=== PATIENT | male | born 1950 | race Caucasian/White ===

== ENCOUNTER 2019-04-21 11:01 | Emergency (ER) | payer MEDICARE, OTHER ==
[2019-04-21] MEDS ORDERED: Silver Sulfadiazine 1% Crm 50 GM Tube TOP ONE ×2 (11:18→11:47)
[2019-04-21] MEDS ORDERED: Diphtheria,Pertussis(Acell),Tetanus Vaccine 0.5 ML SDV IM ONE (11:18)
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
== END 2019-04-21 11:45 | disposition home or self-care (01) ==
LOC: KA.ED 11:01
DX: T24.202A Burn of second degree of unspecified site of left lower limb, except ankle and foot, initial encounter (principal); T31.0 Burns involving less than 10% of body surface; Z88.0 Allergy status to penicillin; Z23 Encounter for immunization; X08.8XXA Exposure to other specified smoke, fire and flames, initial encounter; Y93.89 Activity, other specified; Y92.096 Garden or yard of other non-institutional residence as the place of occurrence of the external cause
CPT/HCPCS: 16020; 90471; 90715; 99283; 99283-25

== ENCOUNTER 2021-12-18 21:24 | Emergency (ER) | payer MEDICARE, OTHER ==
[2021-12-18] MEDS ORDERED: Cephalexin 250 MG Cap PO ONE (21:37)
[2021-12-18] MEDS ORDERED: diphenhydrAMINE 25 MG/10 ML Cup PO ONE (21:47)
[2021-12-18] MEDS ORDERED: diphenhydrAMINE 25 MG Cap PO ONE (22:03)
== END 2021-12-18 22:56 | disposition home or self-care (01) ==
LOC: SUPCPDRO 21:24 → KA.ED 21:24
DX: T63.461A Toxic effect of venom of wasps, accidental (unintentional), initial encounter (principal); L03.114 Cellulitis of left upper limb; I10 Essential (primary) hypertension; Z88.0 Allergy status to penicillin; Z79.899 Other long term (current) drug therapy
CPT/HCPCS: 99282; 99283; A9270-GY